=== PATIENT | male | born 1950 | race American Indian/Alaskan Native ===

== ENCOUNTER 2017-04-02 13:01 | Emergency (ER) | payer MEDICARE ==
[2017-04-02 13:41] LABS: Hematocrit 36.2 % (35.5-45.6); Hemoglobin 12.3 gm/dl (11.8-15.2); Mean Corpuscular HGB Conc 34 % (32-34); Mean Corpuscular Hemoglobin 32 pg (28-32); Mean Corpuscular Volume 94 fl (84-94); Platelet Count 165 K/mm3 (140-440); Red Blood Count 3.86 M/mm3 (3.65-5.03); Red Cell Distribution Width 15.7 % (13.2-15.2)
[2017-04-02 13:47] LABS: Calcium 9.3 mg/dL (8.4-10.2); Chloride 97.9 mmol/L (98-107); Potassium 5.1 mmol/L (3.6-5.0)
--- NOTE | 2017-04-02 22:42 | Emergency Department Report ---
ED General Adult HPI - General Chief complaint: Medical Clearance Stated complaint: NEEDS DIALYSIS AND HEP B SERIES Time Seen by Provider: 04/02/17 21:41 Source: patient, RN notes reviewed, old records reviewed Mode of arrival: Ambulatory Limitations: No Limitations - History of Present Illness Initial comments: This is a 66-year-old male, previously unknown to this provider, who presents to the ER requesting dialysis. He has no headache, neck pain, chest pain, abdominal pain and shortness of breath. The patient was recently incarcerated, and was discharged without follow-up, and was recently admitted to the hospital for dialysis and hyperkalemia, and as per review of his old chart, case management has established that the patient is supposed to follow up with outpatient dialysis at the [facility] dialysis center. Patient is also requesting a hepatitis B vaccination. Associated Symptoms: denies other symptoms - Related Data Home Medications Medication Instructions Recorded Confirmed Last Taken Omeprazole 40 mg PO DAILY 06/08/16 03/30/17 06/06/16 Sennosides/Docusate Sodium 1 each PO BID 06/08/16 03/30/17 06/06/16 [Doc-Q-Lax Tablet] Vit B Comp No.3/Folic/C/Biotin 1 tab PO DAILY 06/08/16 03/30/17 06/06/16 [Radha-Lynne Rx Tablet] Previous Rx's Medication Instructions Recorded Last Taken Type Metoprolol Xl [Metoprolol 25 mg PO BID #60 tablet 03/31/17 Unknown Rx SUCCINATE ER TAB] Allergies Allergy/AdvReac Type Severity Reaction Status Date / Time No Known Allergies Allergy Verified 06/07/16 10:42 ED Review of Systems ROS: Stated complaint: NEEDS DIALYSIS AND HEP B SERIES Other details as noted in HPI Constitutional: denies: fever Eyes: denies: eye discharge ENT: denies: epistaxis, congestion Respiratory: denies: cough, shortness of breath, SOB with exertion, SOB at rest Cardiovascular: denies: chest pain, edema Gastrointestinal: denies: abdominal pain Genitourinary: as per HPI Musculoskeletal: as per HPI Skin: as per HPI Neurological: as per HPI ED Past Medical Hx - Past Medical History Hx Hypertension: Yes Hx Diabetes: No Hx Deep Vein Thrombosis: Yes (ARMS FROM DIALYSIS GRAFTS) Hx Pulmonary Embolism: Yes Hx GERD: Yes Hx Renal Disease: Yes (DIALYSIS M-W-F) Hx Arthritis: Yes Additional medical history: ANEMIA - Surgical History Past Surgical History?: Yes Additional Surgical History: GRAFT LEFT UPPER ARM. RIGHT INGUINAL HERNIA REPAIR - Social History Smoking Status: Never Smoker - Medications Home Medications: Home Medications Medication Instructions Recorded Confirmed Last Taken Type Omeprazole 40 mg PO DAILY 06/08/16 03/30/17 06/06/16 History Sennosides/Docusate Sodium 1 each PO BID 06/08/16 03/30/17 06/06/16 History [Doc-Q-Lax Tablet] Vit B Comp No.3/Folic/C/Biotin 1 tab PO DAILY 06/08/16 03/30/17 06/06/16 History [Radha-Lynne Rx Tablet] Metoprolol Xl [Metoprolol 25 mg PO BID #60 tablet 03/31/17 Unknown Rx SUCCINATE ER TAB] ED Physical Exam - General Limitations: No Limitations General appearance: alert, in no apparent distress - Head Head exam: Present: atraumatic, normocephalic - Eye Eye exam: Present: normal appearance, EOMI. Absent: nystagmus - ENT ENT exam: Present: normal exam, normal orophraynx, mucous membranes moist, normal external ear exam - Neck Neck exam: Present: normal inspection, full ROM. Absent: tenderness, meningismus - Respiratory Respiratory exam: Present: normal lung sounds bilaterally. Absent: respiratory distress, wheezes, rales, rhonchi, stridor, chest wall tenderness, accessory muscle use, decreased breath sounds, prolonged expiratory - Cardiovascular Cardiovascular Exam: Present: regular rate, normal rhythm, normal heart sounds. Absent: bradycardia, tachycardia, irregular rhythm, systolic murmur, diastolic murmur, rubs, gallop - GI/Abdominal GI/Abdominal exam: Present: soft, normal bowel sounds. Absent: distended, tenderness, guarding, rebound, rigid, pulsatile mass - Rectal Rectal exam: Present: deferred - Extremities Exam Extremities exam: Present: normal inspection, full ROM, normal capillary refill , other (left upper extremity AV fistula, appropriate throat, no redness, pus or streaking or tenderness.). Absent: pedal edema, joint swelling, calf tenderness - Back Exam Back exam: Present: normal inspection, full ROM. Absent: tenderness, CVA tenderness (R), paraspinal tenderness, vertebral tenderness - Neurological Exam Neurological exam: Present: alert, oriented X3, normal gait, other (Extraocular movements intact. Tongue midline. No facial droop. Facial sensation intact to light touch in the V1, V2, V3 distribution bilaterally. 5 and 5 strength in 4 extremities.. Sensation is intact to light touch in 4 extremities.). Absent : motor sensory deficit - Psychiatric Psychiatric exam: Present: normal affect, normal mood - Skin Skin exam: Present: warm, dry, intact, normal color. Absent: rash ED Course Vital Signs 04/02/17 04/02/17 13:08 23:00 Temperature 97.5 F L 97.7 F Pulse Rate 64 88 Respiratory 16 16 Rate Blood Pressure 136/88 Blood Pressure 149/83 [Left] O2 Sat by Pulse 99 97 Oximetry ED Medical Decision Making - Lab Data Result diagrams: 04/02/17 13:13 04/02/17 13:13 Vital Signs 04/02/17 13:08 Temperature 97.5 F L Pulse Rate 64 Respiratory 16 Rate Blood Pressure 136/88 O2 Sat by Pulse 99 Oximetry Lab Results 04/02/17 04/02/17 Range/Units 13:13 13:13 WBC 5.0 (4.5-11.0) K/mm3 RBC 3.86 (3.65-5.03) M/mm3 Hgb 12.3 (11.8-15.2) gm/dl Hct 36.2 (35.5-45.6) % MCV 94 (84-94) fl MCH 32 (28-32) pg MCHC 34 (32-34) % RDW 15.7 H (13.2-15.2) % Plt Count 165 (140-440) K/mm3 Sodium 143 (137-145) mmol/L Potassium 5.1 H (3.6-5.0) mmol/L Chloride 97.9 L (98-107) mmol/L Carbon Dioxide 28 (22-30) mmol/L Anion Gap 22 mmol/L BUN 57 H (9-20) mg/dL Creatinine 9.7 H (0.8-1.5) mg/dL Estimated GFR 7 ml/min BUN/Creatinine Ratio 6 % Glucose 127 H (75-100) mg/dL Calcium 9.3 (8.4-10.2) mg/dL - Medical Decision Making Assessment and plan: 66-year-old male, requesting dialysis. The patient is afebrile with reassuring vital signs, not hypertensive, not hypoxic, no respiratory distress, potassium 5.1. Reviewed old case management notes that were recently written:[facility] 1950 [id number] 04/01/17 16:54 - Case Management Note by SERGIO DOHERTY Num: [id number] : 1950 Patient Age: 66 DCP received a call from Carla of [facility] [phone], requesting d/c summary to be faxed to [phone],Carla stated patient was to have outpatient dialysis arranged with their dialysis center before he d/c home. [facility] faxed information. I discussed the patient's case with Dr. Edwards, covering filters assembler, he indicates the patient should follow up tomorrow at the [facility] dialysis center, and he further indicates that the patient can be given a hepatitis B vaccination there. I also give the patient a copy of his discharge summary, so he can bring them with him to the [facility] dialysis [facility]. At this point in time, the patient is afebrile with reassuring vital signs, unremarkable physical exam, does not be objective criteria for emergent dialysis or hospital admissions. Critical care attestation.: If time is entered above; I have spent that time in minutes in the direct care of this critically ill patient, excluding procedure time. ED Disposition Clinical Impression: End stage renal disease Disposition: DC- TO HOME OR SELFCARE Is pt being admited?: No Does the pt Need Aspirin: No Condition: Stable Instructions: Chronic Kidney Disease (ED) Additional Instructions: Continue current outpatient medications. Follow up at the [facility] dialysis center tomorrow, bring the discharge summary that this provider has given to you. The facility should attempt to accommodate you with a dialysis session. If they are unable to accommodate you, please have them contact Dr. Edwards, whom I have discussed your case with, and he would like to be contacted. He also indicated that the dialysis center can give you a hepatitis B vaccination, if they require it. [address], [place] [address] Hours: Mon-Sat: 6am - 4pm To book dialysis treatment at this center: Call: Please return to the ER right away with fevers, chills, chest pain, shortness of breath, intractable nausea or vomiting, confusion, inability to tolerate liquid feeds, shortness of breath, weakness. Referrals: JE COLEMAN MD [Primary Care Provider] - 3-5 Days DAVID JAMISON MD [Staff Physician] - 3-5 Days
[2017-04-02 23:32] VITALS: BP 149/83
== END 2017-04-02 23:00 | disposition home or self-care (01) ==
LOC: ED 13:01
DX: I12.0 Hypertensive chronic kidney disease with stage 5 chronic kidney disease or end stage renal disease (principal); N18.6 End stage renal disease; I10 Essential (primary) hypertension; I82.409 Acute embolism and thrombosis of unspecified deep veins of unspecified lower extremity; M19.90 Unspecified osteoarthritis, unspecified site
CPT/HCPCS: 36415; 80048; 85027; 99283